=== PATIENT | male | born 1975 | race Caucasian/White ===

== ENCOUNTER 2017-11-29 07:31 | Emergency (ER) | payer MEDICAID ==
[~2017-11-29] VITALS: Ht 170.2 cm; Wt 67.1 kg
--- NOTE | 2017-11-29 07:38 | NUR ---
PT AMBULATED TO OF1 Addendum: 11/29/17 at 0759 by MEDHT PT AMBULATED TO LEAT[facility]
[2017-11-29 07:39] VITALS: BP 128/80
--- NOTE | 2017-11-29 07:44 | NUR ---
PATIENT PRESENTS TO ED WITH C/O PAIN 10/10 ON BOTTOM OF LT FFOT RADIATING TO THE TOES SINCE YESTERDAY AT WORK; UNSURE OF TYPE INJURY AT WORK HX; IBS RX; OMEPRAZOLE; DENIES N/V/D; SKIN IS PINK/WARM/DRY; AAOX4 WITH EVEN AND STEADY GAIT; LUNGS CLEAR BL; HR EVEN AND REGULAR; PT DENIES ANY FEVER, CP, SOB, OR COUGH AT THIS TIME; PATIENT STATES PAIN OF 8/10 AT THIS TIME; VSS; PATIENT POSITIONED FOR COMFORT; ER MD MADE AWARE OF PT STATUS.
[2017-11-29] MEDS ORDERED: KETOROLAC 30 MG/ML VIAL IM ONE (08:05)
[2017-11-29 09:05] VITALS: BP 128/76
== END 2017-11-29 09:05 | disposition home or self-care (01) ==
LOC: MED 07:31
DX: S93.602A Unspecified sprain of left foot, initial encounter (principal); X58.XXXA Exposure to other specified factors, initial encounter; Y93.89 Activity, other specified; Y92.89 Other specified places as the place of occurrence of the external cause; Y99.8 Other external cause status
CPT/HCPCS: 73630; 96372; 99284; J1885

== ENCOUNTER 2018-11-22 13:12 | Emergency (ER) | payer MEDICAID ==
[~2018-11-22] VITALS: Ht 170.2 cm; Wt 74.8 kg
--- NOTE | 2018-11-22 13:15 | NUR ---
PT AMBULATES WITH GUARDED GAIT TO BED 5
[2018-11-22 13:19] VITALS: BP 136/97
--- NOTE | 2018-11-22 13:57 | NUR ---
C/O AWOKE WITH SHARP SHOOTING PAIN FROM RIGHT KNEE DOWN ANKLE X TODAY DENIES RECENT INJURY---NO SWELLING REDNESS OR INCREASED WARMTH TO SITE NOTED +2 PEDAL EDEMA <3 SEC CAP REFILL--- PAIN WITH AMBULATION HX--GERD RX--OMEPRAZOLE, RANITIDINE, CLARITIN
--- NOTE | 2018-11-22 13:57 | NUR ---
Sivan gabby in EDM - 11/22/18 at 1426 by MED1 C/O AWOKE WITH SHARP SHOOTING PAIN FROM RIGHT KNEE DOWN ANKLE X TODAY DENIES RECENT INJURY---NO SWELLING REDNESS OR INCREASED WARMTH TO SITE NOTED +2 PEDAL EDEMA <3 SEC CAP REFILL--- PAIN WITH AMBULATION HX--GERD, GOUT, VERICOSE VEINS RX--OMEPRAZOLE, RANITIDINE, CLARITIN
[2018-11-22] MEDS ORDERED: DEXAMETHASONE 10 MG/ML VIAL IM ONE (14:30)
[2018-11-22] MEDS ORDERED: KETOROLAC 60 MG/2 ML VIAL IM ONE (14:30)
[2018-11-22 16:26] VITALS: BP 132/73
--- NOTE | 2018-11-22 16:26 | NUR ---
Patient discharged with v/s stable. Written and verbal after care instructions given and explained. Patient alert, oriented and verbalized understanding of instructions. Ambulatory with steady gait. All questions addressed prior to discharge. ID band removed. Patient advised to follow up with PMD. Rx of INDOCIN & TRAMADOL given. Patient educated on indication of medication including possible reaction and side effects. Opportunity to ask questions provided and answered.
== END 2018-11-22 16:26 | disposition home or self-care (01) ==
LOC: MED 13:12
DX: M10.9 Gout, unspecified (principal); K21.9 Gastro-esophageal reflux disease without esophagitis
CPT/HCPCS: 96372; 99283; J1100; J1885

== ENCOUNTER 2019-01-17 16:41 | Emergency (ER) | payer MEDICAID ==
[~2019-01-17] VITALS: Ht 172.7 cm; Wt 79.4 kg
[2019-01-17 16:45] VITALS: BP 124/74
--- NOTE | 2019-01-17 20:45 | NUR ---
PT AMBULATED TO BED 09.
[2019-01-17] MEDS ORDERED: BACITRACIN OINT 500 UNITS/GM PKT TP ONE (21:20)
--- NOTE | 2019-01-17 21:43 | NUR ---
PATIENT C/O FIFTH DIGIT LACERATION THAT HAS BEEN BLEEDING SINCE 1600 ON 01/17/19. THE PATIENT STATED "WAS CUTTING YAMS AND SLICED HIS PINKY FINGER." BLEEDING UNDER CONTROL, NEW DRESSING CHANGE APPLIED, CLEANSED WITH NS, PAT DRY AND APPLIED BACITRACIN AND NON ADHESIVE DRESSING. PAIN IS 10/10. WAITING TO BE EVALUATED BY ER MD, WILL CONTINUE TO MONITOR.
[2019-01-17] MEDS ORDERED: KETOROLAC 60 MG/2 ML VIAL IM ONE ×2 (22:20→22:30)
[2019-01-17 22:35] VITALS: BP 171/106
--- NOTE | 2019-01-17 22:45 | NUR ---
PATIENT DISCHARGED BY DR ADAMS, PATIENT WAS INFORMED ABOUT RX FOR NAPROSYN AND ALL QUESTIONS ANSWERED. PATIENT COMPLAINED OF PAIN AND WAS ADMINISTERED TORADOL 60 MG, PATIENT CURRENTLY WAITING IN THE LOBBY TO BE REEVAULATED. FOLLOW UP INFORMATION GIVEN. WOUND WAS CLEAN, NO SIGNS OF BLEEDING. PATIENT REEVALUATED AND IS STABLE. REEVALUATED MEDICATION AND NO SIGNS OF DISTRESS NOTED, PAIN LEVEL 3/10.
== END 2019-01-17 22:45 | disposition home or self-care (01) ==
LOC: MED 16:41
DX: S61.217A Laceration without foreign body of left little finger without damage to nail, initial encounter (principal); K21.9 Gastro-esophageal reflux disease without esophagitis; F17.210 Nicotine dependence, cigarettes, uncomplicated; W45.8XXA Other foreign body or object entering through skin, initial encounter; Y93.89 Activity, other specified; Y92.89 Other specified places as the place of occurrence of the external cause; Y99.8 Other external cause status
CPT/HCPCS: 90471; 90715; 96372; 99283; J1885

== ENCOUNTER 2022-12-14 12:16 | Inpatient (IN) | payer MEDICAID ==
[~2022-12-14] VITALS: Ht 167.6 cm; Wt 79.0 kg
[2022-12-14] VITALS (8 sets, daily range): BP systolic 151–212; BP diastolic 24–134
[2022-12-14] MEDS ORDERED: LACTATED RINGERS 1,000 ML IV STA ×2 (12:22→13:46)
--- NOTE | 2022-12-14 12:24 | NUR ---
[facility] ALS TO ER BED 1
[2022-12-14] MEDS ORDERED: THIAMINE 100 MG TAB PO ONE (12:25)
[2022-12-14] MEDS ORDERED: LORazepam 2 MG/ML VIAL ONE (12:33)
[2022-12-14] MEDS ORDERED: LORazepam 2 MG/ML VIAL IVP ONE ×2 (12:35→13:15)
[2022-12-14] MEDS ORDERED: cefTRIAXone 1,000 MG in DEXT 5% MINI-BAG PLUS 50 ML IV ONE (12:35)
[2022-12-14] MEDS ORDERED: ONDANSETRON 4 MG/2 ML VIAL IVP ONE (12:35)
--- NOTE | 2022-12-14 12:45 | NUR ---
MOTHER WINSTON CALLED [phone]
[2022-12-14] MEDS ORDERED: cefTRIAXone 1,000 MG VIAL ONE (12:50)
[2022-12-14] MEDS ORDERED: MAG SULF 2000 MG/WATER PREMIX 50 ML IV ONE (12:55)
[2022-12-14 13:09] LABS: ANION GAP 33.5 (8-16); ASPARTATE AMINOTRANSFERASE 337 U/L (15-37); CARBON DIOXIDE 15.9 mmol/L (21-32); CHLORIDE 91 mmol/L (98-107); CREATININE 1.2 mg/dL (0.6-1.3); GFR ARICAN-AMERICAN 84 mL/min (>90); GLUCOSE 111 mg/dL (74-106); POTASSIUM 3.4 mmol/L (3.5-5.1); SODIUM SERUM 137 mmol/L (136-145); TOTAL BILIRUBIN 1.3 mg/dL (0.0-1.0); UREA NITROGEN, BLOOD 6 mg/dL (7-18)
[2022-12-14 13:10] LABS: ACETAMINOPHEN < 0.5 ug/ml (10-30); SALICYLATE < 2.8 mg/dL (2.8-20.0)
[2022-12-14 13:11] LABS: BASOPHILS # (AUTO) 0.1 K/uL (0.00-0.22); BASOPHILS % (AUTO) 1.9 % (0.0-2.0); EOSINOPHILS % (AUTO) 0.3 % (0.0-4.0); HEMATOCRIT 41.5 % (36-52); HEMOGLOBIN 13.6 g/dL (12.0-18.0); LYMPHOCYTES % (AUTO) 15.6 % (20.5-51.1); MEAN CORPUSCULAR HEMOGLOBIN 33 pg (27-31); MEAN CORPUSCULAR HGB CONC 33 g/dL (33-37); MONOCYTES % (AUTO) 15.7 % (1.7-9.3); NEUTROPHILS # (AUTO) 4.1 K/uL (1.8-7.7); NEUTROPHILS % (AUTO) 66.5 % (42.2-75.2); PLATELET COUNT (AUTO) 194 K/uL (140-450); RED BLOOD CELL COUNT(AUTO) 4.11 MIL/uL (4.20-6.10); RED CELL DISTRIBUTION WIDTH 14.1 % (11.6-13.7); WHITE BLOOD COUNT (AUTO) 6.2 K/uL (4.8-10.8)
[2022-12-14] MEDS ORDERED: DEXMEDETOMIDINE HCL 400 MCG in NACL 0.9% 96 ML IV ONE (13:35)
--- NOTE | 2022-12-14 13:56 | NUR ---
Precedex ordered from Pharmacy
[2022-12-14] MEDS ORDERED: ZOLPIDEM 10 MG TAB PO PRN (14:10)
[2022-12-14] MEDS ORDERED: ONDANSETRON 4 MG/2 ML VIAL IVP PRN (14:10)
[2022-12-14] MEDS ORDERED: DOCUSATE SODIUM 100 MG GELCAP PO PRN (14:10)
[2022-12-14] MEDS ORDERED: ACETAMINOPHEN 325 MG TAB PO PRN (14:10)
[2022-12-14] MEDS ORDERED: NACL 0.9% 1,000 ML IV ONE (14:15)
[2022-12-14] MEDS ORDERED: FOLIC ACID 1 MG TAB PO SCH (14:15)
[2022-12-14] MEDS: VITAMIN B COMPLEX W/C 1 TAB PO SCH (14:59)
--- NOTE | 2022-12-14 15:06 | NUR ---
Pt very trembly, sweating, Precedex dose increased to 0.4mcg/kg/hr (8.16ml/hr)
--- NOTE | 2022-12-14 15:29 | NUR ---
pt voided using urinal in bed but spilled the urine in the bed, unable to collect urine sample
--- NOTE | 2022-12-14 16:15 | NUR ---
RECEIVE FROM ER BY MARY JANE. HE IS AWAKE ADD ALERT AT THAT TIME BUT SHAKY AND NEIVERT HAS IV FLUID RT ARM NS AT 100ML/HR ON LEFT ARM INFUSING PRECEDEX AT .4MCG/KG/H. GENERAL SKIN DRY HAS OLD RASH ALL OVER HIS BODY THERE ARE SOME NEW RASHES ON HIS NECK.HE SAID HE CAH VOID IN URENAL/
[2022-12-14] MEDS: LORazepam 2 MG/ML VIAL IVP PRN ×2 (16:39→21:32)
--- NOTE | 2022-12-14 20:45 | NUR ---
Notified Dr Montenegro about pt's condition restlessness agitated high blood pressure also mentioned to MD pt's condition on admission. Order received for Hydralazine 25MG po PRN FOR SBP>160 no changes in ATIVAN order as MD requested for CIWA protocol not obtainable.
[2022-12-14] MEDS ORDERED: chlordiazePOXIDE 25 MG CAP PO SCH (21:00)
[2022-12-14] MEDS: POTASSIUM CHLORIDE 10 MEQ TABER PO PRN (21:30)
[2022-12-14] MEDS: hydrALAZINE 25 MG TAB PO PRN (21:41)
[2022-12-14] MEDS: MORPHINE SULFATE 2 MG/ML SYR IVP PRN (22:46)
[2022-12-15] VITALS (23 sets, daily range): BP systolic 121–177; BP diastolic 76–118
[2022-12-15] MEDS ORDERED: LORazepam 2 MG/ML VIAL IVP PRN ×2 (01:40→01:55)
--- NOTE | 2022-12-15 01:45 | NUR ---
Gave pt Ativan 2mg twice, Benadryl 25mg PO, AMBIEN 10mg Morphine 2mg hydralazine 25mg PO ineffective still very restless, trying to climb out of bed, combative, pulled out all the medical lines including Peripheral IV lines elevated blood pressure tachycardia, Restraints applied for safety enhanced monitoring Notified Dr Montenegro, he gave order and requested to follow [facility] protocol. Fortunately Jamey SHAH paste mixing supervisor was here and discussed with over the phone. New order received for MVI IV, Thiamine, Ativan 2mg x1 dose, and PRN dose changed to q1hr PRN, Librium 25mg Q6HR.
[2022-12-15] MEDS ORDERED: chlordiazePOXIDE 25 MG CAP PO SCH (01:55)
--- NOTE | 2022-12-15 02:02 | NUR ---
Dr Montenegro called and gave the order: 1. Librium 25mg q6hrs 2. ativan IV 1mg q1hr prn 3. Start thiamine 100mg PO daily 4. Folic acid 1mg PO daily 5. Wait 2 hours if you have the ativan 2mg IV for agitation already
[2022-12-15] MEDS ORDERED: MULTIVITAMIN-12 10 ML, FOLIC ACID 1 MG in NACL 0.9% 1,000 ML IV ONE (02:40)
[2022-12-15] MEDS ORDERED: MAG SULF 2000 MG/WATER PREMIX 50 ML IV ONE (02:40)
[2022-12-15] MEDS ORDERED: THIAMINE 200 MG/2 ML VIAL IM ONE (02:40)
[2022-12-15] MEDS: MORPHINE SULFATE 2 MG/ML SYR IVP PRN (04:01)
[2022-12-15] MEDS: LORazepam 2 MG/ML VIAL IVP PRN ×5 (05:03→14:46)
[2022-12-15 06:24] LABS: ANION GAP 27.9 (8-16); CARBON DIOXIDE 21.8 mmol/L (21-32); CREATININE 0.8 mg/dL (0.6-1.3); POTASSIUM 4.7 mmol/L (3.5-5.1)
[2022-12-15 06:47] LABS: BASOPHILS # (AUTO) 0.1 K/uL (0.00-0.22); BASOPHILS % (AUTO) 0.7 % (0.0-2.0); EOSINOPHILS % (AUTO) 0.4 % (0.0-4.0); HEMATOCRIT 41.7 % (36-52); HEMOGLOBIN 13.7 g/dL (12.0-18.0); LYMPHOCYTES # (AUTO) 0.8 K/uL (2.0-11.5); LYMPHOCYTES % (AUTO) 9.9 % (20.5-51.1); MEAN CORPUSCULAR HEMOGLOBIN 33 pg (27-31); MEAN CORPUSCULAR HGB CONC 33 g/dL (33-37); MEAN CORPUSCULAR VOLUME 100.1 fL (80-94); MONOCYTES # (AUTO) 1.1 K/uL (0.8-1.0); MONOCYTES % (AUTO) 14.5 % (1.7-9.3); NEUTROPHILS # (AUTO) 5.9 K/uL (1.8-7.7); NEUTROPHILS % (AUTO) 74.5 % (42.2-75.2); PLATELET COUNT (AUTO) 184 K/uL (140-450); RED BLOOD CELL COUNT(AUTO) 4.16 MIL/uL (4.20-6.10); RED CELL DISTRIBUTION WIDTH 13.9 % (11.6-13.7); WHITE BLOOD COUNT (AUTO) 7.9 K/uL (4.8-10.8)
--- NOTE | 2022-12-15 07:22 | NUR ---
Change of shift report at the bedside given to Racquel SHAH for continuity of care.
--- NOTE | 2022-12-15 07:30 | NUR ---
Received report and assumed care, patient restless in bed, bilateral wrist restraints in place, good circulation checks. 1mg Ativan IVP given for agitation as ordered. Patient is confused but answers some questions appropriately. Vital signs elevated in the presence of agitation, will continue to monitor for safety.
[2022-12-15] MEDS ORDERED: FOLIC ACID 1 MG TAB PO SCH (09:00)
[2022-12-15] MEDS ORDERED: THIAMINE 100 MG TAB PO SCH (09:00)
[2022-12-15] MEDS: DEXMEDETOMIDINE HCL 400 MCG in NACL 0.9% 96 ML IV PRN ×2 (09:12→20:00)
[2022-12-15] MEDS ORDERED: MAGNESIUM SULFATE IV SCH ×5 (11:00)
[2022-12-15] MEDS ORDERED: MULTIVITAMIN IV SCH ×5 (11:00)
[2022-12-15] MEDS ORDERED: FOLIC ACID IV SCH ×5 (11:00)
[2022-12-15] MEDS: NACL 0.9% 1,000 ML IV SCH (11:00)
[2022-12-15] MEDS ORDERED: [UNRECOGNIZED DRUG - OTHER] IV SCH ×5 (11:00)
[2022-12-15] MEDS: chlordiazePOXIDE 25 MG CAP PO SCH ×2 (13:13→17:10)
--- NOTE | 2022-12-15 15:15 | NUR ---
REPOSITION COMPLETE BED BATH SKIN CARE AND ORAL CARE GIVEN . LT LEG REMAIN HAVE CELLULITIS LARGE AND RED PEDAL PULSE PRESENT BY DROPPER. Addendum: 12/15/22 at 1548 by Cheyenne Slater RN THIS NOTE IS NOT FOR THIS PATIENTS.
--- NOTE | 2022-12-15 15:30 | NUR ---
Family present at bedside, patient resting in bed with eyes closed. VSS on telemetry. Bilateral wrist restraints in place for safety. Updates of patient condition given to family.
--- NOTE | 2022-12-15 16:40 | NUR ---
Bath complete with linen change, bilateral wrist restraints remain in place for safety. VSS on telemetry.
--- NOTE | 2022-12-15 19:08 | NUR ---
Assumed pt care report received from Racquel SHAH met pt awake confused ongoing alcohol withdrawal symptoms occasional elevated blood pressure, SR on the monitor education on care plan reorientation to the unit will continue to support and close monitoring.
--- NOTE | 2022-12-15 19:24 | NUR ---
Patient is resting in bed, bilateral wrist restraints remain in place. Precedex gtt remain at previous rate. VSS on telemetry. Report given to oncoming nurse, Marilyn
[2022-12-15] MEDS ORDERED: DEXMEDETOMIDINE HCL 100 MCG/ML 2 ML VIAL IV ONE (20:36)
[2022-12-16] VITALS (24 sets, daily range): BP systolic 100–164; BP diastolic 44–124
[2022-12-16] MEDS: LORazepam 2 MG/ML VIAL IVP PRN ×6 (00:27→21:32)
[2022-12-16] MEDS: DEXMEDETOMIDINE HCL 400 MCG in NACL 0.9% 96 ML IV PRN ×2 (00:30→19:52)
[2022-12-16] MEDS: hydrALAZINE 25 MG TAB PO PRN ×3 (00:33→21:33)
[2022-12-16] MEDS: NACL 0.9% 1,000 ML IV SCH ×4 (00:35→20:30)
[2022-12-16 06:13] LABS: BASOPHILS # (AUTO) 0.1 K/uL (0.00-0.22); BASOPHILS % (AUTO) 0.9 % (0.0-2.0); EOSINOPHILS # (AUTO) 0.2 K/uL (0-0.4); EOSINOPHILS % (AUTO) 2.7 % (0.0-4.0); HEMATOCRIT 39.4 % (36-52); HEMOGLOBIN 12.9 g/dL (12.0-18.0); LYMPHOCYTES # (AUTO) 1.2 K/uL (2.0-11.5); LYMPHOCYTES % (AUTO) 20.5 % (20.5-51.1); MEAN CORPUSCULAR HEMOGLOBIN 33 pg (27-31); MEAN CORPUSCULAR HGB CONC 33 g/dL (33-37); MEAN CORPUSCULAR VOLUME 101.2 fL (80-94); MONOCYTES # (AUTO) 0.7 K/uL (0.8-1.0); MONOCYTES % (AUTO) 11.8 % (1.7-9.3); NEUTROPHILS # (AUTO) 3.9 K/uL (1.8-7.7); NEUTROPHILS % (AUTO) 64.1 % (42.2-75.2); PLATELET COUNT (AUTO) 163 K/uL (140-450); RED BLOOD CELL COUNT(AUTO) 3.89 MIL/uL (4.20-6.10); WHITE BLOOD COUNT (AUTO) 6.1 K/uL (4.8-10.8)
[2022-12-16 06:33] LABS: ANION GAP 15.7 (8-16); CARBON DIOXIDE 25.1 mmol/L (21-32); CREATININE 0.8 mg/dL (0.6-1.3); POTASSIUM 3.8 mmol/L (3.5-5.1)
--- NOTE | 2022-12-16 07:20 | NUR ---
Change of shift report to Cindy SHAH for continuity of care as at this time pt is safe on the unit
[2022-12-16] MEDS ORDERED: MULTIVITAMIN-12 10 ML, FOLIC ACID 1 MG in NACL 0.9% 1,000 ML IV ONE (09:00)
[2022-12-16] MEDS: chlordiazePOXIDE 25 MG CAP PO SCH ×3 (09:34→17:00)
[2022-12-16] MEDS: VITAMIN B COMPLEX W/C 1 TAB PO SCH (09:35)
--- NOTE | 2022-12-16 10:44 | NUR ---
PATIENT HAS BEEN SCREENED AND CATEGORIZED LOW NUTRITION RISK. PATIENT WILL BE SEEN WITHIN 7 DAYS OF ADMISSION. 12/14/22-12/21/[address]
[2022-12-16] MEDS: MULTIVITAMIN-12 10 ML, THIAMINE 100 MG, FOLIC ACID 1 MG in NACL 0.9% 1,000 ML IV SCH (11:00)
[2022-12-16] MEDS ORDERED: DEXMEDETOMIDINE HCL 100 MCG/ML 2 ML VIAL IV ONE (19:24)
--- NOTE | 2022-12-16 20:55 | NUR ---
PT RECEIVED FROM HANK SHAH. PT STABLE AND SUPINE IN BED. RAILS UP TO ENSURE PT SAFETY
[2022-12-17] VITALS (24 sets, daily range): BP systolic 101–167; BP diastolic 57–105
[2022-12-17] MEDS ORDERED: DEXMEDETOMIDINE HCL 100 MCG/ML 2 ML VIAL IV ONE ×3 (01:12→20:53)
[2022-12-17] MEDS: DEXMEDETOMIDINE HCL 400 MCG in NACL 0.9% 96 ML IV PRN ×4 (01:36→21:15)
[2022-12-17] MEDS: LORazepam 2 MG/ML VIAL IVP PRN ×7 (05:49→21:18)
[2022-12-17 05:53] LABS: BASOPHILS # (AUTO) 0.1 K/uL (0.00-0.22); EOSINOPHILS # (AUTO) 0.2 K/uL (0-0.4); EOSINOPHILS % (AUTO) 2.8 % (0.0-4.0); HEMATOCRIT 37.1 % (36-52); HEMOGLOBIN 12.2 g/dL (12.0-18.0); LYMPHOCYTES # (AUTO) 1.1 K/uL (2.0-11.5); LYMPHOCYTES % (AUTO) 17.1 % (20.5-51.1); MEAN CORPUSCULAR HEMOGLOBIN 33 pg (27-31); MEAN CORPUSCULAR HGB CONC 33 g/dL (33-37); MONOCYTES # (AUTO) 0.6 K/uL (0.8-1.0); MONOCYTES % (AUTO) 10.2 % (1.7-9.3); NEUTROPHILS # (AUTO) 4.3 K/uL (1.8-7.7); NEUTROPHILS % (AUTO) 68.9 % (42.2-75.2); PLATELET COUNT (AUTO) 151 K/uL (140-450); RED BLOOD CELL COUNT(AUTO) 3.67 MIL/uL (4.20-6.10); RED CELL DISTRIBUTION WIDTH 13.4 % (11.6-13.7); WHITE BLOOD COUNT (AUTO) 6.3 K/uL (4.8-10.8)
[2022-12-17 06:28] LABS: ANION GAP 12.5 (8-16); CARBON DIOXIDE 25.6 mmol/L (21-32); CREATININE 0.7 mg/dL (0.6-1.3); POTASSIUM 3.1 mmol/L (3.5-5.1)
--- NOTE | 2022-12-17 07:50 | NUR ---
Received report from production generalist, Pt. is alert, awake and oriented x 3 with episodes of confusion. VS WNL. Cont. with CIWA protocol. Afebrile. Cont. with restraints.
[2022-12-17] MEDS: chlordiazePOXIDE 25 MG CAP PO SCH ×3 (08:29→16:46)
[2022-12-17] MEDS: MAG SULF 2000 MG/WATER PREMIX 50 ML IV PRN (08:30)
[2022-12-17] MEDS: hydrALAZINE 25 MG TAB PO PRN ×2 (08:31→17:42)
[2022-12-17] MEDS: POTASSIUM CHLORIDE 10 MEQ TABER PO PRN (08:32)
[2022-12-17] MEDS: VITAMIN B COMPLEX W/C 1 TAB PO SCH (09:03)
--- NOTE | 2022-12-17 10:06 | NUR ---
PT. WITH LOW MATT SCALE AT MODERATE TO HIGH RISK, CONTINUE TO FOLLOW PRESSURE INJURY PREVENTION INTERVENTIONS. -POSITIONING: TURN AND REPOSITION PATIENT Q 2H OR SOONER USE PILLOWS TO KEEP BONY PROMINENCES FROM DIRECT CONTACT WITH SURFACES USE REPOSITIONING WEDGES TO PROVIDE 30-DEGREE ANGLE FOR SIDE LYING POSITIONS OFFLOADING OR FOAM DRESSING TO ALL TUBING TO PREVENT MEDICAL DEVICES RELATED PRESSURE INJURY -RE-EVALUATING AND MANAGING INCONTINENCE MONITOR SKIN CONDITION DURING POSITION CHANGE DO NOT MASSAGE REDNESS, BONY PROMINENCES FREQUENT RAÚL-CARE AND PROVIDE BARRIER CREAMS PRN IF SOILING MOISTURE CONTROL BY OFFER BED MORTON/URINAL /ABSORBENT PAD TO WICK AND HOLD MOISTURE KEEP SKIN DRY AND PROTECT FROM FRICTION -MANAGE FRICTION/SHEAR/MOBILITY KEEP HOB AT THE LOWEST LEVEL OF ELEVATION NO MORE THAN 30 DEGREE UNLESS OTHERWISE CONTRAINDICATED USE LIFT SHEET OR TRANSFER DEVICE TO MOVE PATIENT AND PREVENT LATERAL SHEER. PROTECT HEELS, ELBOWS BONY PROMINENCES WITH SKIN BERRIES OR FOAM DRESSING IF EXPOSED TO FRICTION OFFLOAD BILATERAL HEELS BY PLACING PILLOWS UNDER CALVES AT ALL TIMES, UNLESS OTHERWISE CONTRAINDICATED -PRESSURE REDISTRIBUTION SURFACE THERAPY BROWN ISOFLEX MATTRESS -NUTRITION: PLEASE FOLLOW RD RECOMMENDATIONS AND OFFER NUTRITION SUPPLEMENTS IF ORDERED. PLEASE CONTACT WOUND CARE NURSE FOR ANY QUESTION AND CHANGE OF WOUND CONDITION.
[2022-12-17] MEDS: MULTIVITAMIN-12 10 ML, THIAMINE 100 MG, FOLIC ACID 1 MG in NACL 0.9% 1,000 ML IV SCH (11:34)
[2022-12-17] MEDS: NACL 0.9% 1,000 ML IV SCH (12:35)
[2022-12-17] MEDS: MORPHINE SULFATE 2 MG/ML SYR IVP PRN ×2 (16:45→23:54)
[2022-12-17] MEDS ORDERED: HALOPERIDOL IM 5 MG/ML VIAL ONE (18:46)
--- NOTE | 2022-12-17 19:25 | NUR ---
Assumed pt care received report from THOMAS SHAH, met pt awake alert oriented to self, confused elevated blood pressure, due to ETOH withdrawal, need constant reminder to stay in bed, attempted to get out of bed many times, restraints applied bilateral upper extremities, fall risk in place, close monitoring support to alleviates anxiety, skin checked no breakdown noted PO and IV fluids hydration, adequate urie Addendum: 12/17/22 at 2157 by Agency Rodrigo SHAH RN Adequate urine output noted will continue to monitor and treat as per care plan.
[2022-12-17] MEDS: hydrALAZINE 20 MG/ML VIAL IVP PRN (21:20)
[2022-12-18] VITALS (25 sets, daily range): BP systolic 115–194; BP diastolic 77–121
[2022-12-18] MEDS: LORazepam 2 MG/ML VIAL IVP PRN ×5 (00:11→10:21)
[2022-12-18] MEDS: TRIAMCINOLONE 0.025% CRM 15 GM TUBE TP SCH ×2 (00:11→13:47)
[2022-12-18] MEDS: NACL 0.9% 1,000 ML IV SCH ×3 (00:12→21:07)
[2022-12-18] MEDS ORDERED: DEXMEDETOMIDINE HCL 100 MCG/ML 2 ML VIAL IV ONE ×2 (02:04→06:15)
[2022-12-18] MEDS: DEXMEDETOMIDINE HCL 400 MCG in NACL 0.9% 96 ML IV PRN ×5 (02:15→21:04)
[2022-12-18] MEDS: HALOPERIDOL IM 5 MG/ML VIAL IM PRN (04:06)
[2022-12-18 05:34] LABS: BASOPHILS % (AUTO) 0.3 % (0.0-2.0); EOSINOPHILS % (AUTO) 0.6 % (0.0-4.0); HEMATOCRIT 37.6 % (36-52); HEMOGLOBIN 12.5 g/dL (12.0-18.0); LYMPHOCYTES # (AUTO) 0.4 K/uL (2.0-11.5); MEAN CORPUSCULAR HEMOGLOBIN 33 pg (27-31); MEAN CORPUSCULAR HGB CONC 33 g/dL (33-37); MONOCYTES # (AUTO) 0.9 K/uL (0.8-1.0); MONOCYTES % (AUTO) 12.3 % (1.7-9.3); NEUTROPHILS # (AUTO) 5.7 K/uL (1.8-7.7); NEUTROPHILS % (AUTO) 80.8 % (42.2-75.2); PLATELET COUNT (AUTO) 156 K/uL (140-450); RED BLOOD CELL COUNT(AUTO) 3.76 MIL/uL (4.20-6.10); RED CELL DISTRIBUTION WIDTH 13.8 % (11.6-13.7); WHITE BLOOD COUNT (AUTO) 7.1 K/uL (4.8-10.8)
[2022-12-18 06:26] LABS: ANION GAP 13.3 (8-16); CARBON DIOXIDE 25.2 mmol/L (21-32); CREATININE 0.6 mg/dL (0.6-1.3); POTASSIUM 3.5 mmol/L (3.5-5.1)
--- NOTE | 2022-12-18 07:25 | NUR ---
pt is safe on the unit awake alert but still confused elevated blood pressure due to ETOH withdrawal symptoms and pt endorsed to JINNY SHAH for continuity of care .
[2022-12-18] MEDS: chlordiazePOXIDE 25 MG CAP PO SCH ×2 (08:28→17:00)
[2022-12-18] MEDS: VITAMIN B COMPLEX W/C 1 TAB PO SCH (08:29)
[2022-12-18] MEDS: MULTIVITAMIN-12 10 ML, THIAMINE 100 MG, FOLIC ACID 1 MG in NACL 0.9% 1,000 ML IV SCH (10:22)
[2022-12-18] MEDS: amLODIPine 5 MG TAB PO SCH (11:34)
--- NOTE | 2022-12-18 14:12 | NUR ---
DC PLANNIN YRS OLD MALE PATIENT WAS ADMITTED FROM HOME WITH A DX OF ALCOHOL WITHDRAWAL. PATIENT HAS A HX OF HYPERTENSION, ALCOHOL ABUSE AND GERD. ADMITTED IN ICU FOR PRECEDEX DRIP . ADMINISTERED IVF , FOLIC ACID THIAMINE AND LIBRIUM. CONSULTED WITH CRITICAL CARE PULMO. DC PLAN TO DOWN GRADE TO TELE WHEN STABLE CM TO FOLLOW Addendum: 12/21/22 at 1423 by Guadalupe Sun RN DC PLANNING: PATIENT WAS TAKEN OFF PRECEDEX HOWEVER BECAME AGITATED AND TACHYCARDIC RESTARTED LOW DOSE OF PRECEDEX DRIP CONTINUED IVF, IV MULTIVITAMIN. ON ROOM AIR. PULMO FOLLOWING DC PLAN TO GO HOME WHEN STABLE. CM TO FOLLOW
--- NOTE | 2022-12-18 14:26 | NUR ---
DC PLANNING PER NOTES, PT IS CONFUSED THEREFORE ANGE OUTREACHED TO PTS EMERGENCY CONTACT [facility] [phone] HOWEVER, INDICATED VM IS FOR [place], NOT [facility] . NO MESSAGE LEFT. ANGE OUTREACHED TO [facility] ICU NURSE TO INQUIRE ON ADDITIONAL EMERGENCY CONTACTS OR FAMILY AT BEDSIDE. [facility] REPORTS PTS MOTHER AND FATHER HAVE CALLED FOR UPDATES AND REPORTS FAMILY WILL BE IN TO VISIT PT THIS EVENING. NURSE TO COLLECT PHONE NUMBERS WHEN FAMILY COMES IN SO THAT ASSESSMENT CAN BE COMPLETED. Addendum: 12/19/22 at 1609 by Ze THOMSON MET WITH PT AT BEDSIDE TO COMPLETE ASSESSMENT, HOWEVER PT STRUGGLED TO PARTICIPATE IN ASSESSMENT AND STRUGGLED TO RECALL IMPORTANCE INFORMATION. ADDITIONAL EC RECEIVED FROM ICU NURSE. ATTEMPTED TO OUTREACH TO PTS MOTHER WINSTON Anton, PTS MOM [phone] HOWEVER NO ANSWER.
--- NOTE | 2022-12-18 14:51 | NUR ---
AUNT/UNRULY KERNS AT BEDSIDE, PROVIDE CONTACT INFORMATION. AUNT/UNRULY KERNS [phone]. MOM/WINSTON NICHOLS [phone].
[2022-12-18] MEDS: hydrALAZINE 20 MG/ML VIAL IVP PRN (15:08)
--- NOTE | 2022-12-18 20:10 | NUR ---
Assumed pt care met pt awake follows command mild anxiety and confusion. Education on care requires more reinforcement and close observation for safety and support. Restraints site checked no skin breakdown noted all distal pulses palpable. Encouraged to drink more fluids and to verbalize his concerns. Ongoing monitoring and treat as per care plan.
[2022-12-19] VITALS (24 sets, daily range): BP systolic 108–157; BP diastolic 72–110
[2022-12-19] MEDS: DEXMEDETOMIDINE HCL 400 MCG in NACL 0.9% 96 ML IV PRN ×5 (00:44→22:03)
[2022-12-19] MEDS: TRIAMCINOLONE 0.025% CRM 15 GM TUBE TP SCH ×2 (01:00→13:20)
[2022-12-19] MEDS: hydrALAZINE 20 MG/ML VIAL IVP PRN (02:25)
[2022-12-19] MEDS: HALOPERIDOL IM 5 MG/ML VIAL IM PRN (02:26)
[2022-12-19] MEDS ORDERED: DEXMEDETOMIDINE HCL 100 MCG/ML 2 ML VIAL IV ONE ×2 (04:49→05:19)
[2022-12-19 05:52] LABS: BASOPHILS % (AUTO) 0.4 % (0.0-2.0); EOSINOPHILS # (AUTO) 0.2 K/uL (0-0.4); EOSINOPHILS % (AUTO) 2.7 % (0.0-4.0); HEMOGLOBIN 12.2 g/dL (12.0-18.0); LYMPHOCYTES # (AUTO) 0.7 K/uL (2.0-11.5); LYMPHOCYTES % (AUTO) 12.4 % (20.5-51.1); MEAN CORPUSCULAR HEMOGLOBIN 33 pg (27-31); MEAN CORPUSCULAR HGB CONC 33 g/dL (33-37); MEAN CORPUSCULAR VOLUME 100.2 fL (80-94); MONOCYTES # (AUTO) 1.1 K/uL (0.8-1.0); MONOCYTES % (AUTO) 18.9 % (1.7-9.3); NEUTROPHILS # (AUTO) 3.7 K/uL (1.8-7.7); NEUTROPHILS % (AUTO) 65.6 % (42.2-75.2); PLATELET COUNT (AUTO) 166 K/uL (140-450); RED BLOOD CELL COUNT(AUTO) 3.69 MIL/uL (4.20-6.10); RED CELL DISTRIBUTION WIDTH 14.2 % (11.6-13.7); WHITE BLOOD COUNT (AUTO) 5.6 K/uL (4.8-10.8)
[2022-12-19 06:09] LABS: ANION GAP 12.6 (8-16); CARBON DIOXIDE 25.8 mmol/L (21-32); CREATININE 0.6 mg/dL (0.6-1.3); POTASSIUM 3.4 mmol/L (3.5-5.1)
[2022-12-19] MEDS: NACL 0.9% 1,000 ML IV SCH ×2 (06:22→15:00)
--- NOTE | 2022-12-19 07:22 | NUR ---
Change of shift report at the bedside to MARLO SHAH pt awake confused able to follow commands vitals signs stable denies, safe on the unit, ongoing Precedex drip @1.2 mcg/kg/hr tolerating well and no sign of distress noted
--- NOTE | 2022-12-19 07:30 | NUR ---
RECEIVED REPORT FROM PROJECT DEVELOPMENT ENGINEER. PT IN BED WITH HOB ELEVATED. WITH BILATERAL WRIST RESTRAINTS. NO SKIN BREAKDOWN. AOX1, ORIENTED TO SELF. WITH OCCASIONAL VISUAL HALLUCINATIONS. RESPONDS TO VERBAL CUES. FOLLOWS SIMPLE COMMANDS. WITH PERIPHERAL IVS RUNNING PRECEDEX AT 1.2MCG/KG/MIN AND NS AT 100CC/HR. SAFETY AND SEIZURE PRECAUTIONS IN PLACE
[2022-12-19] MEDS: amLODIPine 5 MG TAB PO SCH (09:00)
[2022-12-19] MEDS: VITAMIN B COMPLEX W/C 1 TAB PO SCH (09:00)
[2022-12-19] MEDS: chlordiazePOXIDE 25 MG CAP PO SCH ×3 (09:00→17:00)
[2022-12-19] MEDS: MULTIVITAMIN-12 10 ML, THIAMINE 100 MG, FOLIC ACID 1 MG in NACL 0.9% 1,000 ML IV SCH (11:08)
[2022-12-19 22:39] LABS: APPEARANCE,URINE CLEAR (CLEAR); BILIRUBIN,URINE NEGATIVE (NEGATIVE); BLOOD, URINE NEGATIVE (NEGATIVE); COLOR,URINE YELLOW (YELLOW); LEUKOCYTE ESTERASE ,URINE NEGATIVE (NEGATIVE); NITRITE, URINE NEGATIVE (NEGATIVE); UGLUCOSE NEGATIVE (NEGATIVE)
[2022-12-19 22:50] LABS: BARBITURATE, URINE NEGATIVE ng/ml (NEG <=200); BENZODIAZEPINE, URINE POSITIVE ng/mL (NEG <=200); CANNABINOID, URINE NEGATIVE ng/mL (NEG <=50); COCAINE, URINE NEGATIVE ng/mL (NEG <=300); OPIATE, URINE NEGATIVE ng/mL (NEG <=2000); PHENCYCLIDINE SCREEN,URINE NEGATIVE ng/mL (NEG <=25)
[2022-12-20] VITALS (23 sets, daily range): BP systolic 122–176; BP diastolic 66–116
[2022-12-20] MEDS: NACL 0.9% 1,000 ML IV SCH ×3 (01:32→21:23)
[2022-12-20] MEDS: TRIAMCINOLONE 0.025% CRM 15 GM TUBE TP SCH ×2 (01:32→13:00)
[2022-12-20] MEDS: HALOPERIDOL IM 5 MG/ML VIAL IM PRN ×2 (02:20→22:00)
[2022-12-20] MEDS: DEXMEDETOMIDINE HCL 400 MCG in NACL 0.9% 96 ML IV PRN ×2 (02:48→07:16)
--- NOTE | 2022-12-20 04:05 | NUR ---
PT REMAINS STABLE OVERNIGHT. DISPLAYS IMPULSIVITY AND REQUIRES FREQUENT REORIENTATION. RESTRAINTS AND MITTENS REMAINS IN PLACE TO PREVENT PT FROM PULLING OUT LINES. ATTEMPTED TO CLIMB OUT OF BED ONCE AND PULLED ONE RANDY OUT. HALDOL WAS GIVEN AND PRECEDEX WAS BROUGHT UP TO 0.9.
--- NOTE | 2022-12-20 07:30 | NUR ---
RECEIVED REPORT FROM ARACELI RN PT. IS AWAKE FOLLOW COMMAND. SKIN DRY WARM TO TOUCH. IV # 20 ON RT AC INFUSING NS AT 100 ML/HR AND PRECEDEX IA 1.99 MCG/KG/H. BREATHING IN ROOM AIR O2 95%, OFFER NO COMPLAIN. ,
[2022-12-20] MEDS: amLODIPine 5 MG TAB PO SCH (09:00)
[2022-12-20] MEDS: VITAMIN B COMPLEX W/C 1 TAB PO SCH (09:00)
[2022-12-20] MEDS: chlordiazePOXIDE 25 MG CAP PO SCH ×3 (09:00→23:49)
[2022-12-20] MEDS: MULTIVITAMIN-12 10 ML, THIAMINE 100 MG, FOLIC ACID 1 MG in NACL 0.9% 1,000 ML IV SCH ×2 (10:39→10:51)
[2022-12-20] MEDS ORDERED: chlordiazePOXIDE 25 MG CAP PO SCH (12:15)
--- NOTE | 2022-12-20 12:25 | NUR ---
SEEN BY DR. ULLOA AT BED SIDE ORDER RECEIVED WILL ICREASE LIBUIM AND DECREASE PRECEDEX..
--- NOTE | 2022-12-20 14:00 | NUR ---
OOB SIT IN A CHAIR AT BED SIDE, PT. IS COOPERATE AND FOLLOW COMMAND AT THE TIME..
--- NOTE | 2022-12-20 14:22 | NUR ---
DC PLANNING ASSESSMENT COMPLETE PLEASE REFER TO ASSESSMENT FOR DETAILS TENTATIVE DC PLAN IS FOR PT TO RETURN HOME WITH FAMILY PROVIDING TRANSPORTATION ONCE MEDICALLY STABLE. PT REFERRED TO [facility] FOR LINKAGE TO REHAB PROGRAMS. DISCUSSED WITH PTS MOTHER REHAB PLACEMENT AND ENCOURAGED FAMILY TO SPEAK WITH PT ABOUT RECEVING TREATMENT. MOTHER AWARE PT MUST BE AGREEABLE TO TREATMENT. SUBSTANCE USE RESOURCES LEFT AT BEDSIDE. Addendum: 12/25/22 at 1556 by Ze Wagner SS OUTREACHED TO PTS MOTHER WINSTON TO DISCUSS PATIENTS DC. WINSTON REPORTS SHE WAS REQUESTING TO SPEAK TO THE ATTENDING PHYSICIAN SHE HAS CONCERNS PT IS NOT MEDICALLY STABLE. WINSTON REPORTS HER SISTER WAS AT BEDSIDE 12/24 AND REPORTED TO HER, PT WAS "HALLUCINATING AND WAS AGITATED". SPOKE WITH WINSTON AND REPORTED THAT I (ANGE) WOULD ENDORSE TO TO ENDORSE TO PHYSICIAN HOWEVER, IF DID NOT HOLD DC ORDER, TYPICALLY FAMILY WOULD BE RESPONSIBLE FOR P/UP. WINSTON REPORTS FAMILY IS WORKING HARD IN IDENTIFYING SUBSTANCE USE PLACEMENT HOWEVER HAS BEEN UNSUCCESSFUL. DISCUSSED WITH WINSTON AND REPORTED THAT BC PLACEMENT CAN BE LENGTHY DUE TO WAIT LIST AND ASSESSMENT PROCESS, AND, AN [facility], HOSPITAL IS UNABLE TO KEEP PT UNTIL PLACEMENT IS IDENTIFIED. ENDORSED TO CM FUGITIVE INVESTIGATOR WHO REPORTS SHE WILL CONTACT ATTENDING.
--- NOTE | 2022-12-20 14:46 | NUR ---
12/20/22 RD INITIAL ASSESSMENT COMPLETED PLEASE REFER TO NUTRITION ASSESSMENT UNDER CARE ACTIVITY FOR ESTIMATED NUTRITIONAL NEEDS. 1. RECOMMEND CARDIAC DIET TOLERATED 2. MONITOR GI, PO INTAKE, AND LAB VALUES. 3. RD TO FOLLOW-UP 7 DAYS, LOW RISK REVIEWED BY YASMEEN MART RD
[2022-12-21] VITALS (24 sets, daily range): BP systolic 113–167; BP diastolic 63–111
[2022-12-21] MEDS: HALOPERIDOL IM 5 MG/ML VIAL IM PRN ×2 (00:13→06:27)
[2022-12-21] MEDS: hydrALAZINE 20 MG/ML VIAL IVP PRN (00:37)
[2022-12-21] MEDS: TRIAMCINOLONE 0.025% CRM 15 GM TUBE TP SCH ×2 (00:37→13:36)
[2022-12-21] MEDS: ZOLPIDEM 5 MG TAB PO PRN ×3 (01:00→20:51)
[2022-12-21] MEDS: LORazepam 2 MG/ML VIAL IVP PRN ×2 (02:22→08:09)
[2022-12-21] MEDS: chlordiazePOXIDE 25 MG CAP PO SCH ×3 (06:01→17:33)
[2022-12-21] MEDS: NACL 0.9% 1,000 ML IV SCH ×2 (06:27→17:33)
--- NOTE | 2022-12-21 06:56 | NUR ---
CONTINUES TO DISPLAY IRRITABILITY OVERNIGHT. IMPULSIVELY TRIES TO GET OUT OF BED AND REMOVES CONDOM CATHETER AND IV LINES. PRECEDEX HASNT HAD ANY SORT OF EFFECT SO IT WAS DC'D. NEED CONSTANT REORIENTATION
--- NOTE | 2022-12-21 07:30 | NUR ---
RECEIVED PT IN BED ALERT WITH CONFUSION. GCS 13. ATTEMPTING TO GET OUT OF BED. MODERATE TREMORS NOTED. PT APPEARS ANXIOUS. STACH ON MONITOR AND HYPERTENSIVE. MEDICATED WITH ATIVAN PER ORDER. WILL CONTINUE TO MONITOR.
[2022-12-21] MEDS: VITAMIN B COMPLEX W/C 1 TAB PO SCH (08:45)
[2022-12-21] MEDS: amLODIPine 5 MG TAB PO SCH (08:45)
--- NOTE | 2022-12-21 09:04 | NUR ---
MINIMAL RELIEF FROM ATIVAN, SPOKE TO DR ULLOA WITH ORDERS TO BEGIN PRECEDEX IF NEEDED FOR PT.
--- NOTE | 2022-12-21 09:16 | NUR ---
PT TOLERATED PO INTAKE WITHOUT DIFFICULTY.
--- NOTE | 2022-12-21 09:30 | NUR ---
OOB TO BATH ROOM WITH ALUMINUM SHEET CUTTER GARYSMLYNNE AMOUNT OF STOOL.
[2022-12-21] MEDS: DEXMEDETOMIDINE HCL 400 MCG in NACL 0.9% 96 ML IV PRN (09:59)
[2022-12-21] MEDS: GABAPENTIN 300 MG CAP PO SCH ×3 (10:00→17:33)
--- NOTE | 2022-12-21 10:00 | NUR ---
DR ULLOA AT BEDSIDE TO ASSESS PT. PT MODERATE TO SEVERE TREMORS. PER MD TO PLACE PT BACK ON PRECEDEX.
--- NOTE | 2022-12-21 10:01 | NUR ---
PRECEDEX INITIATED PER PROTOCOL
[2022-12-21] MEDS: MULTIVITAMIN-12 10 ML, THIAMINE 100 MG, FOLIC ACID 1 MG in NACL 0.9% 1,000 ML IV SCH (11:23)
--- NOTE | 2022-12-21 14:00 | NUR ---
visit by anti and uncle at bed side , all question answered.
[2022-12-21] MEDS ORDERED: THIAMINE 200 MG/2 ML VIAL IM ONE (14:25)
--- NOTE | 2022-12-21 14:29 | NUR ---
BANANA BAGS D/C GIVE PO VITAMINS.
--- NOTE | 2022-12-21 18:02 | NUR ---
P.T. NOTES P.T. EVAL INITIATED; REFER TO EVAL FOR DETAILS.
--- NOTE | 2022-12-21 19:25 | NUR ---
PT. SLEEPING, V/S STABLE REPORT GIVE TO
--- NOTE | 2022-12-21 20:15 | NUR ---
Pt awake now confused mild agitation tremors trying to get out of bed, prevalent ETOH withdrawal symptoms, reorientation to the unit, education on care plan, water offered, complete bed bath with linen changed, new peripheral IV started on the left antecubital gauge # 20 and #22 left fore arm pt tolerated well assisted with repositioning in bed with HOB elevated to 30 degrees. Fed pt's dinner ate about 45% until said he was full. Encouraged to call for help call light at reach bed in low position, bedsides rails up x4 still on seizure precaution hourly rounds pt's room close to nurses station. Vitals signs stable afebrile ongoing monitoring and treatments as per care plan.
[2022-12-21] MEDS: POTASSIUM CHLORIDE 10 MEQ TABER PO PRN (20:52)
[2022-12-22] VITALS (20 sets, daily range): BP systolic 125–176; BP diastolic 60–112
[2022-12-22] MEDS: chlordiazePOXIDE 25 MG CAP PO SCH ×4 (00:58→17:46)
[2022-12-22] MEDS: TRIAMCINOLONE 0.025% CRM 15 GM TUBE TP SCH ×2 (00:59→12:34)
[2022-12-22] MEDS: HALOPERIDOL IM 5 MG/ML VIAL IM PRN (02:54)
[2022-12-22] MEDS: NACL 0.9% 1,000 ML IV SCH ×3 (02:55→23:00)
[2022-12-22] MEDS: LORazepam 2 MG/ML VIAL IVP PRN ×4 (05:00→20:48)
[2022-12-22] MEDS: hydrALAZINE 20 MG/ML VIAL IVP PRN (05:01)
--- NOTE | 2022-12-22 07:00 | NUR ---
Received report from Marilyn SHAH. Patient is resting in bed watching TV. Denies c/o pain or discomfort. A&O x3, PERRLA 2mm, some confusion and attempting to move/remove devices. Reoriented and redirected. Tremors continue to be observed. Generalized weakness noted, able to move all extremities. Lung sounds clear all power, on room air, denies c/o SOB; saturating WNL on room air. S1/S2 auscultated, pulses +2 BUE/BLE, cap refill <2 sec. Bowel sounds active x4, passing gas, last BM per noc shift 12/21/22. Condom cath in place draining clear yellow urine, secured with stat lock. 20g L AC running Precedex 0.2mcg/kg/min and NS running at 100ml/hr, secured with guaze wrap. 20g to left distal FA in place and secured with gauze wrap. No changes concerning integument. Bilateral wrist restraints in place to BUE; BUE neurovascular intact. Will continue to monitor.
--- NOTE | 2022-12-22 07:15 | NUR ---
Change of shift report given to 2 RNS PAM and BINTA for continuity of care as at this time pt awake confused but able to follow command, safe on the unit, vitals signs stable ongoing support education reinforcement, needs close monitoring no changes in care plan and pt's condition.
[2022-12-22 07:41] LABS: HEMATOCRIT 34.8 % (36-52); HEMOGLOBIN 11.7 g/dL (12.0-18.0); MEAN CORPUSCULAR HEMOGLOBIN 33 pg (27-31); MEAN CORPUSCULAR HGB CONC 34 g/dL (33-37); PLATELET COUNT (AUTO) 276 K/uL (140-450); RED BLOOD CELL COUNT(AUTO) 3.52 MIL/uL (4.20-6.10); RED CELL DISTRIBUTION WIDTH 13.8 % (11.6-13.7); WHITE BLOOD COUNT (AUTO) 5.3 K/uL (4.8-10.8)
[2022-12-22 07:49] LABS: ANION GAP 12.1 (8-16); CARBON DIOXIDE 27.2 mmol/L (21-32); CREATININE 0.8 mg/dL (0.6-1.3); POTASSIUM 3.3 mmol/L (3.5-5.1)
[2022-12-22 07:53] LABS: MAGNESIUM 1.4 mg/dL (1.8-2.4); PHOSPHORUS 3.2 mg/dL (2.5-4.9)
[2022-12-22] MEDS: amLODIPine 5 MG TAB PO SCH (08:21)
[2022-12-22] MEDS: POTASSIUM CHLORIDE 10 MEQ TABER PO PRN (08:21)
[2022-12-22] MEDS: GABAPENTIN 300 MG CAP PO SCH ×3 (08:22→17:47)
[2022-12-22] MEDS: THIAMINE 100 MG TAB PO SCH (08:22)
[2022-12-22] MEDS: VITAMIN B COMPLEX W/C 1 TAB PO SCH (08:23)
[2022-12-22] MEDS: FOLIC ACID 1 MG TAB PO SCH (08:24)
[2022-12-22] MEDS: MAG SULF 2000 MG/WATER PREMIX 50 ML IV PRN (08:25)
--- NOTE | 2022-12-22 09:00 | NUR ---
Patient consumed 80% of breakfast and was able to attempt feeding self but became tired, patient was assisted with feeding. Tolerated breakfast well.
--- NOTE | 2022-12-22 10:02 | NUR ---
here to see patient. Per ok to stop Precedex infusion. New orders given to increase Librium to 100mg q 6 hrs. Order noted and carried out.
--- NOTE | 2022-12-22 18:10 | NUR ---
Patient transferred to Telemetry per MD order. Report given to Sohail SHAH. Patient stable at time of transfer.
[2022-12-23 00:48] VITALS: BP 144/88
[2022-12-23] MEDS: TRIAMCINOLONE 0.025% CRM 15 GM TUBE TP SCH ×2 (00:51→13:00)
[2022-12-23] MEDS: chlordiazePOXIDE 25 MG CAP PO SCH ×5 (00:56→23:42)
[2022-12-23 04:32] VITALS: BP 140/81
--- NOTE | 2022-12-23 07:34 | NUR ---
NURSES NOTE PATIENT RECEIVED ON BED SIDE , A/OX2 , ON RESTRAIN BOTH ARM , WITH CONDOM CATH , ON IV FLUID N/S0.89% 100CC/H PATIENT TRYING TO GET OFF THE BED , SKIN INTACT BUT HE HAS RASH OLL OVER HIS BODY ,ON REGULAR DIET , HE NEED FEEDING ASSISTANCE , STILL UNDER OBSERVE .
[2022-12-23] MEDS: NACL 0.9% 1,000 ML IV SCH (07:57)
[2022-12-23] MEDS: GABAPENTIN 300 MG CAP PO SCH ×3 (07:58→17:10)
[2022-12-23] MEDS: VITAMIN B COMPLEX W/C 1 TAB PO SCH (07:58)
[2022-12-23] MEDS: amLODIPine 5 MG TAB PO SCH (07:58)
[2022-12-23] MEDS: FOLIC ACID 1 MG TAB PO SCH (07:58)
[2022-12-23] MEDS: POTASSIUM CHLORIDE 10 MEQ TABER PO PRN (07:59)
[2022-12-23] MEDS: THIAMINE 100 MG TAB PO SCH (07:59)
[2022-12-23] MEDS: LORazepam 2 MG/ML VIAL IVP PRN (07:59)
[2022-12-23 09:36] VITALS: BP 150/85
--- NOTE | 2022-12-23 12:00 | NUR ---
NURSES NOTE PATIENT STILL ON RESTRAIN , CONDOM CATH ON , ON IV FLUID N/S 0.89% 100CC/H , SKIN INTACT , ON REGULAR DIET STILL UNDER OBSERVE .
[2022-12-23 13:13] VITALS: BP 144/97
[2022-12-23 17:06] VITALS: BP 145/88
--- NOTE | 2022-12-23 18:39 | NUR ---
NURSES NOTE PATIENT RECEIVED ON BED SIDE , A/OX2 , ON RESTRAIN BOTH ARM , WITH CONDOM CATH , ON IV FLUID N/S0.89% 100CC/H PATIENT TRYING TO GET OFF THE BED , SKIN INTACT BUT HE HAS RASH ECZEMA OVER HIS BODY ,ON REGULAR DIET , HE NEED FEEDING ASSISTANCE ,SAFETY PROACTION ON PLACE , SEIZURE PROACTION ON , STILL UNDER OBSERVE .
--- NOTE | 2022-12-23 19:00 | NUR ---
SHIFT REPORT GIVEN TO MANOJ SHAH ALL HIS QUESTION ANSWER
[2022-12-23 20:00] VITALS: BP_SYST 148; BP_SYST 155; BP_DIAS 89; BP_DIAS 99
--- NOTE | 2022-12-23 20:14 | NUR ---
AWAKE , NO S/SX OF ACUTE DISTRESS NOTED , ON TELE MONITOR , WILL CONT. TO MONITOR . Addendum: 12/24/22 at 228 by Amber Jamison RN BP 156/ 99 , HR 93 , O2 SAT 98 5 , WILL CONT. TO MONITOR Addendum: 12/24/22 at 231 by Amber Jamison RN THE ABOVE NUMBERS 98 5 - IS AN ERROR ENTRY , INSTEAD OF 98% - KRISTENLR
--- NOTE | 2022-12-23 21:00 | NUR ---
BP RE CHECK 164/ 101 - HR 102 - WILL MEDICATE , ON S2 PREC. FOR CLOSELY WATCH . Addendum: 12/24/22 at 0740 by Amber Jamison RN AT 2120 - APRESOLINE 10 MG TIV SLOWLY IV PUSH GIVEN , WILL CONT. TO MONITOR
[2022-12-24] VITALS: BP 148/89
[2022-12-24] MEDS: NACL 0.9% 1,000 ML IV SCH ×3 (00:31→17:36)
[2022-12-24] MEDS: TRIAMCINOLONE 0.025% CRM 15 GM TUBE TP SCH ×2 (00:31→13:16)
--- NOTE | 2022-12-24 01:15 | NUR ---
SHOWING SIGNS OF AGITATIONS , BP 155/90 , HR 114 , RR 20 , O2 SAT 99 5 - WILL MEDICATE . - FOR CLOSELY WATCH .
[2022-12-24] MEDS: LORazepam 2 MG/ML VIAL IVP PRN (01:18)
--- NOTE | 2022-12-24 01:32 | NUR ---
TRYING TO GET UP FROM THE BED , BED ALARM UN , CLOSELY WATCH , SECURE SAFETY , FALL RISK
--- NOTE | 2022-12-24 01:42 | NUR ---
TRYING TO GET UP FROM THE BED , CONFUSE , BP 148 / 89 , O2 SAT 98 % , AL 118 , SECURE SAFETY , FOR CLOSELY WATCH . - ATIVAN GIVEN WHILE AGO , ON SEMI HIGH BACK REST
[2022-12-24 04:00] VITALS: BP 152/79
--- NOTE | 2022-12-24 04:00 | NUR ---
BEDSIDE MORNING CARE RENDER W/ HELP OF SHANIA , NO S/SX OF ACUTE DISTRESS NOTED
--- NOTE | 2022-12-24 05:57 | NUR ---
PAGED NURSE SUP. FOR LIBRIUM , NO ENOUGH STOCK AT FLOOR .
--- NOTE | 2022-12-24 07:02 | NUR ---
DANIEL SAID HE WILL GET LIBRIUM FROM ICU
[2022-12-24] MEDS: chlordiazePOXIDE 25 MG CAP PO SCH ×3 (07:07→18:00)
--- NOTE | 2022-12-24 07:13 | NUR ---
ENDORSED , AWAKE , ON BED ALARM , ENDORSE FOR CONT. OF CARE .
[2022-12-24 08:00] VITALS: BP 151/90
--- NOTE | 2022-12-24 08:30 | NUR ---
PT AWAKE AND VERY AGITATED. STATES HE HAS TO URINATE BUT REFUSES TO USE A DIAPER AND LONGER. PT ATTEMPTED TO AMBULATE WITH MYSELF AND RN TOPHER MORAES AT BEDSIDE, BUT WAS UNABLE TO DO SO. PT WAS GIVEN A URINAL INSTEAD, BUT STILL REFUSED TO WEAR A DIAPER. PT BACK IN BED AND REPOSITIONED. WILL CONTINUE TO MONITOR. Addendum: 12/25/22 at 0218 by Topher Johns LVN LVN FOR 2029 NOT 0830.
[2022-12-24] MEDS: THIAMINE 100 MG TAB PO SCH (09:18)
[2022-12-24] MEDS: amLODIPine 5 MG TAB PO SCH (09:19)
[2022-12-24] MEDS: VITAMIN B COMPLEX W/C 1 TAB PO SCH (09:19)
[2022-12-24] MEDS: FOLIC ACID 1 MG TAB PO SCH (09:20)
[2022-12-24] MEDS: GABAPENTIN 300 MG CAP PO SCH ×3 (09:20→17:00)
[2022-12-24 12:00] VITALS: BP 151/82
--- NOTE | 2022-12-24 15:54 | NUR ---
Patient refuses to speak to Psychiatrist this telepsych attempt.
[2022-12-24 16:00] VITALS: BP 160/90
--- NOTE | 2022-12-24 19:27 | NUR ---
RECEIVED REPORT FROM DAY SHIFT NURSE FOR CONTINUITY OF CARE. PT IS ASLEEP BUT AROUSABLE TO SHAKING. IV SITE LOCATED AT LEFT FOREARM 22 GAUGE, RUNNING NS AT 100ML/HR, INTACT AND PATENT. PT HAS RESTRAINT ORDER BUT RESTRAINTS ARE CURRENTLY NOT IN PLACE. SAFETY MEASURES CHECKED, CALL LIGHT WITHIN REACH.
[2022-12-24 20:00] VITALS: BP 135/106
--- NOTE | 2022-12-24 20:00 | NUR ---
Patient's Plan of Care was discussed and reviewed with SHREDDING MACHINE KNIFE CHANGER: TOPHER CALABRESE
--- NOTE | 2022-12-24 23:42 | NUR ---
PT ATTEMPTED TO GET OUT OF BED. EDUCATED PT ON FALL PRECAUTIONS. PT REQUIRES FURTHER REINFORCEMENT.
[2022-12-25] VITALS: BP 144/80
--- NOTE | 2022-12-25 | NUR ---
ALL SCHEDULED MEDICATIONS ADMINISTERED WITH NO COMPLICATIONS. NO DISTRESS NOTED, WILL CONTINUE TO MONITOR.
[2022-12-25] MEDS: chlordiazePOXIDE 25 MG CAP PO SCH ×4 (00:02→17:12)
[2022-12-25] MEDS: POTASSIUM CHLORIDE 10 MEQ TABER PO PRN (00:02)
[2022-12-25] MEDS: MAG SULF 2000 MG/WATER PREMIX 50 ML IV PRN (00:10)
[2022-12-25] MEDS: NACL 0.9% 1,000 ML IV SCH ×2 (01:00→11:35)
[2022-12-25] MEDS: TRIAMCINOLONE 0.025% CRM 15 GM TUBE TP SCH ×2 (01:16→11:54)
[2022-12-25 04:00] VITALS: BP 132/87
--- NOTE | 2022-12-25 07:09 | NUR ---
receive the patient from the manufacturing supervisor 2nd shift rn in rm [id number] aox2-3 admitting diagnosis of alcohol abure . will continue to monitor
[2022-12-25 08:00] VITALS: BP 133/83
[2022-12-25] MEDS: GABAPENTIN 300 MG CAP PO SCH ×3 (08:36→17:12)
[2022-12-25] MEDS: FOLIC ACID 1 MG TAB PO SCH (08:36)
[2022-12-25] MEDS: amLODIPine 5 MG TAB PO SCH (08:36)
[2022-12-25] MEDS: THIAMINE 100 MG TAB PO SCH (08:36)
[2022-12-25] MEDS: VITAMIN B COMPLEX W/C 1 TAB PO SCH (08:37)
[2022-12-25] MEDS ORDERED: THIA-34 PO (10:22)
[2022-12-25] MEDS ORDERED: LIB25 PO (10:22)
[2022-12-25] MEDS ORDERED: B-CO1TAB3 PO (10:22)
[2022-12-25] MEDS ORDERED: FOLI1TAB90 PO (10:22)
[2022-12-25] MEDS ORDERED: AMLO-3 PO (10:22)
[2022-12-25] MEDS ORDERED: GABA300C1 PO (10:22)
[2022-12-25] MEDS ORDERED: DOCU-299 PO (10:22)
--- NOTE | 2022-12-25 10:30 | NUR ---
the patinet discharge today . explain to the mother the patient is medically cleared .
[2022-12-25 12:00] VITALS: BP 120/76
[2022-12-25 16:00] VITALS: BP 102/81
--- NOTE | 2022-12-25 16:04 | NUR ---
mother refuse the discharge for today , md barboza postpone the discharge for tomorrow .
--- NOTE | 2022-12-25 16:09 | NUR ---
the aunt is on its way to tile picker the patient .
[2022-12-25 16:15] VITALS: BP 125/78
--- NOTE | 2022-12-25 16:30 | NUR ---
made discharge teaching with patient . remove iv , id band .
--- NOTE | 2022-12-25 18:12 | NUR ---
discharge the patient with aunt and cousin . in a stable condition . no complain of pain . no sign and symptoms of respiratory distress . brought the patient to the lobby to a waiting private car
== END 2022-12-25 18:00 | disposition home or self-care (01) | DRG 816 ==
LOC: MED 12:16 → MMU 14:09 → MIC 15:29 → MTU 12-22 18:34
PROVIDERS: ADMIT Family Medicine; ATTEND Family Medicine
DX: T51.91XA Toxic effect of unspecified alcohol, accidental (unintentional), initial encounter (principal); G92.8 Other toxic encephalopathy; F10.231 Alcohol dependence with withdrawal delirium; E87.20 Acidosis, unspecified; E87.8 Other disorders of electrolyte and fluid balance, not elsewhere classified; G40.909 Epilepsy, unspecified, not intractable, without status epilepticus; E87.6 Hypokalemia; I10 Essential (primary) hypertension; Z20.822 Contact with and (suspected) exposure to COVID-19; R41.0 Disorientation, unspecified; K21.9 Gastro-esophageal reflux disease without esophagitis; M10.9 Gout, unspecified; E83.42 Hypomagnesemia; D64.9 Anemia, unspecified; D72.821 Monocytosis (symptomatic); Y90.0 Blood alcohol level of less than 20 mg/100 ml
CPT/HCPCS: 36415; 70450; 71045; 76705; 80048; 80053; 80305; 81003; 82550; 83605; 83735; 84100; 84484; 85025; 87040; 87081; 87086; 93005; 95816; 96365; 96366; 96368; 96375; 96376; 97112; 97116; 97163-GP; 97530; 99291; A9153; G0480; G0482; J0360; J0696; J1630; J2060; J2270; J2405; J3411; J3475; J3490; J7030; Q0092; Q0163